=== PATIENT | female | born 2000 | race Two or more races ===

== ENCOUNTER → 2019-03-14 | Outpatient (CLI) | payer OTHER ==
[~2019-03-14] MED LIST: PRENATAL TABLE1 EAC1 PO
== END | disposition home or self-care (01) ==
LOC: PRENATAL 14:30
DX: O35.3XX1 Maternal care for (suspected) damage to fetus from viral disease in mother, fetus 1 (principal); Z34.02 Encounter for supervision of normal first pregnancy, second trimester

== ENCOUNTER 2019-03-23 18:23 | Outpatient (CLI) | payer OTHER ==
[2019-03-23] MEDS ORDERED: PRENATAL TABLE1 EAC1 PO (19:10)
== END 2019-03-24 14:12 | disposition home or self-care (01) ==
LOC: OBS/DEL 18:23
DX: O76 Abnormality in fetal heart rate and rhythm complicating labor and delivery (principal); O26.892 Other specified pregnancy related conditions, second trimester; R10.11 Right upper quadrant pain; O35.8XX0 Maternal care for other (suspected) fetal abnormality and damage, not applicable or unspecified

== ENCOUNTER 2019-06-21 15:15 | Inpatient (IN) | payer OTHER ==
[~2019-06-21] VITALS: Ht 160 cm; Wt 66.7 kg
[2019-06-21] MEDS ORDERED: MAXFE CAPLET1 EACH PO (15:55)
[2019-06-21] MEDS ORDERED: LEVOTHYROXINE25 MCG PO (15:55)
[2019-06-24] MEDS ORDERED: KETO10TA2 PO (16:44)
== END 2019-06-24 16:08 | disposition home or self-care (01) | DRG 788 ==
LOC: LDR 15:15 → OB/GYN 15:15
PROVIDERS: ADMIT Obstetrics & Gynecology
PROC: 4A1HXCZ Monitoring of Products of Conception, Cardiac Rate, External Approach (ICD-10-PCS; 2019-06-21)
PROC: 10D00Z1 Extraction of Products of Conception, Low, Open Approach (ICD-10-PCS; principal; 2019-06-21 22:00)
DX: O62.1 Secondary uterine inertia (principal); Z3A.37 37 weeks gestation of pregnancy; Z37.0 Single live birth

== ENCOUNTER 2021-08-25 15:21 | Outpatient (CLI) | payer OTHER ==
[~2021-08-25 15:21] MED LIST changes: +KETO10TA2 PO; +LEVOTHYROXINE25 MCG PO; +MAXFE CAPLET1 EACH PO
== END 2021-08-25 16:07 | disposition home or self-care (01) ==
LOC: PRENATAL 15:21
PROVIDERS: ATTEND Obstetrics & Gynecology Maternal & Fetal Medicine
DX: O35.0XX0 Maternal care for (suspected) central nervous system malformation in fetus, not applicable or unspecified (principal); O35.3XX0 Maternal care for (suspected) damage to fetus from viral disease in mother, not applicable or unspecified; O99.280 Endocrine, nutritional and metabolic diseases complicating pregnancy, unspecified trimester; O34.219 Maternal care for unspecified type scar from previous cesarean delivery; Z3A.23 23 weeks gestation of pregnancy

== ENCOUNTER 2021-10-23 15:10 | Outpatient (CLI) | payer OTHER | END 2021-10-23 16:50 | disposition home or self-care (01) | LOC: PRENATAL 15:10 | PROVIDERS: ATTEND Obstetrics & Gynecology Maternal & Fetal Medicine | DX: O26.849 Uterine size-date discrepancy, unspecified trimester (principal); O99.280 Endocrine, nutritional and metabolic diseases complicating pregnancy, unspecified trimester; O34.219 Maternal care for unspecified type scar from previous cesarean delivery; Z3A.32 32 weeks gestation of pregnancy ==